=== PATIENT | female | born 1950 | race Caucasian/White ===

== ENCOUNTER 2020-02-21 16:10 | Inpatient (IN) | payer OTHER ==
[~2020-02-21] VITALS: Ht 160 cm; Wt 81.6 kg
[2020-02-21] MEDS ORDERED: LOSARTAN POTASS50 MG (16:19)
--- NOTE | 2020-02-21 16:22 | NUR ---
PTE REFIERE MALESTAR GENRAL DESDE HACE 6 SIDDIQUI REFIERE VARIOS SIDDIQUI CON FIEBRE Y OXIGENACION BAJA SE JOSE S/V YSE UBIAC EN AREA DE COVID.
--- NOTE | 2020-02-21 18:08 | NUR ---
EVALUA PTE. SE ORIENTA A PTE SOBRE TX MEDICO. PTE REFIERE COMPRENDER. SE REALIZAN MUESTRAS DE LABORATORIO BAJO MEDIDAS ASEPTICAS. SE NOTIFICA CT. SE NOTIFICAN ABG A LuisMELA.
[2020-02-27] MEDS ORDERED: DECADRON6 MG PO (09:11)
== END 2020-02-27 11:20 | disposition home or self-care (01) | DRG 177 ==
LOC: ER 16:10 → MEDJ 21:47 → SEC-K 21:47 → MEDJ 23:41
PROVIDERS: ADMIT Internal Medicine; ATTEND Internal Medicine
PROC: 4A033R1 Measurement of Arterial Saturation, Peripheral, Percutaneous Approach (ICD-10-PCS; principal; 2020-02-21)
PROC: CB2YYZZ Tomographic (Tomo) Nuclear Medicine Imaging of Respiratory System using Other Radionuclide (ICD-10-PCS; 2020-02-21)
PROC: 8E0ZXY6 Isolation (ICD-10-PCS; 2020-02-22)
PROC: XW033E5 Introduction of Remdesivir Anti-infective into Peripheral Vein, Percutaneous Approach, New Technology Group 5 (ICD-10-PCS; 2020-02-22)
PROC: 3E0F7SF Introduction of Other Gas into Respiratory Tract, Via Natural or Artificial Opening (ICD-10-PCS; 2020-02-24)
DX: U07.1 COVID-19 (principal); J12.89 Other viral pneumonia; I10 Essential (primary) hypertension; R09.02 Hypoxemia; J22 Unspecified acute lower respiratory infection; E78.49 Other hyperlipidemia